=== PATIENT | male | born 1965 | race Caucasian/White ===

== ENCOUNTER 2016-05-18 16:32 | Emergency (ER) | payer BC ==
[2016-05-18 17:33] LABS: BASOPHIL % 0.4 % (0-2); PLATELET COUNT 210 x10^3mcL (130-400); RED CELL DISTRIBUTION WIDTH 13.2 % (11.5-14.5)
[2016-05-18 17:36] LABS: microscopic required? NO
[2016-05-18 17:50] LABS: CALCIUM 8.8 mg/dL (8.5-10.1); CARBON DIOXIDE 28.2 mmol/L (21-32); CHLORIDE SERUM 104 mmol/L (98-107); GFR1 > 60 mL/min; GLUCOSE SERUM 94 mg/dL (74-106); POTASSIUM SERUM 3.8 mmol/L (3.5-5.1); SODIUM SERUM 138 mmol/L (136-145)
[2016-05-18 17:52] LABS: UA SPECIFIC GRAVITY 1.025 (1.005-1.035); urine erythrocyte NEGATIVE (NEGATIVE)
[2016-05-18 17:54] LABS: ALBUMIN 3.8 g/dL (3.4-5.0); ALKALINE PHOSPHATASE 69 U/L (46-116); ALT/SGPT 46 U/L (16-63); AMYLASE 78 U/L (25-115); AST/SGOT 29 U/L (15-37); BILIRUBIN TOTAL 0.57 mg/dL (0.20-1.00); LIPASE 190 IU/L (73-393); TOTAL PROTEIN, SERUM 7.5 g/dL (6.4-8.2)
[2016-05-18 19:34] VITALS: BP 144/95
== END 2016-05-18 19:34 | disposition home or self-care (01) ==
LOC: ED 16:32
PROVIDERS: Emergency Medicine
DX: R10.32 Left lower quadrant pain (principal); E78.1 Pure hyperglyceridemia
CPT/HCPCS: 83880; J3010; J7030; Q9967